=== PATIENT | male | born 1965 | race Asian ===

== ENCOUNTER 2016-07-14 00:31 | Emergency (ER) | payer MEDICARE, OTHER ==
[~2016-07-14] VITALS: Ht 177.8 cm; Wt 81.6 kg
[2016-07-14 00:41] VITALS: BP 142/96
== END 2016-07-14 01:18 | disposition home or self-care (01) ==
LOC: ER 00:38
DX: J02.9 Acute pharyngitis, unspecified (principal); F17.200 Nicotine dependence, unspecified, uncomplicated; I10 Essential (primary) hypertension; E11.9 Type 2 diabetes mellitus without complications; F43.10 Post-traumatic stress disorder, unspecified; F10.239 Alcohol dependence with withdrawal, unspecified
CPT/HCPCS: A4606; Z7610